=== PATIENT | female | born 1985 | race Asian ===

== ENCOUNTER 2018-06-02 20:07 | Emergency (ER) | payer MEDICAID ==
[~2018-06-02] VITALS: Ht 167.6 cm; Wt 57.8 kg
[2018-06-02 20:13] VITALS: BP 118/85
[2018-06-02] MEDS ORDERED: NEOM10SO7 OT (20:30)
[2018-06-02] MEDS ORDERED: ibuprofen tablet 400 MG TABLET PO ONE (20:35)
== END 2018-06-02 20:40 | disposition home or self-care (01) ==
LOC: ER 20:08
DX: H61.892 Other specified disorders of left external ear (principal); Z79.899 Other long term (current) drug therapy
CPT/HCPCS: 99283

== ENCOUNTER 2022-03-08 19:22 | Emergency (ER) | payer MEDICAID ==
[~2022-03-08] VITALS: Ht 165.1 cm; Wt 63.6 kg
[~2022-03-08 19:22] MED LIST: NEOM10SO7 OT
[2022-03-08 19:27] VITALS: BP 133/74
[2022-03-08 20:03] LABS: BASOPHILS # (AUTO) 0.1 X10'3 (0-0.2); EOSINOPHILS # (AUTO) 0.1 X10'3 (0-0.9); MEAN CORPUSCULAR VOLUME 72.4 FL (78-98); MONOCYTES # (AUTO) 0.5 X10'3 (0-0.9)
[2022-03-08 20:07] LABS: URINE HCG NEGATIVE (NEG)
[2022-03-08 20:07] LABS: BASOPHILS % (AUTO) 0.7 % (0-1); EOSINOPHILS % (AUTO) 1.4 % (0-6); HEMATOCRIT 37.5 % (35.0-45.0); LYMPHOCYTES # (AUTO) 2.6 X10'3 (1.1-4.8); LYMPHOCYTES % (AUTO) 33.9 % (21-51); MEAN CORPUSCULAR HEMOGLOBIN 23.1 PG (27.0-31.0); MEAN PLATELET VOLUME 7.2 FL (7.4-10.4); MONOCYTES % (AUTO) 6.9 % (2-12); NEUTROPHILS # (AUTO) 4.3 X10'3 (1.8-7.7); NEUTROPHILS % (AUTO) 57.1 % (42-75); PLATELET COUNT 325 X10'3 (140-440); RED BLOOD COUNT 5.18 X10'6 (4.20-5.60); RED CELL DISTRIBUTION WIDTH 14.7 % (11.5-14.5); WHITE BLOOD COUNT 7.6 X10'3 (4.5-11.0)
[2022-03-08 20:10] LABS: CLARITY,URINE CLEAR (Clear); COLOR,URINE YELLOW (Yellow); GLUCOSE, URINE NEGATIVE (Neg); KETONES,URINE NEGATIVE (Neg); LEUKOCYTE ESTERASE ,URINE NEGATIVE (Neg); NITRITES, URINE NEGATIVE (Neg); OCCULT BLOOD,URINE NEGATIVE (Neg); PROTEIN,URINE NEGATIVE (Neg)
[2022-03-08 20:12] LABS: UA COLLECTION TYPE CLN CATCH MIDSTREAM
[2022-03-08 20:16] LABS: ALANINE AMINOTRANSFERASE 16 U/L (12-78); ALBUMIN/GLOBULIN RATIO 1.1 (1.1-1.5); ALKALINE PHOSPHATASE 68 IU/L (46-116); ANION GAP 7 (8-16); ASPARTATE AMINO TRANSFERASE 15 U/L (10-37); BILIRUBIN,TOTAL 0.2 MG/DL (0.1-1.0); BLOOD UREA NITROGEN 19 MG/DL (7-18); BUN/CREATININE RATIO 26.4 (6.6-38.0); CALCIUM 8.3 MG/DL (8.5-10.1); CHLORIDE 105 MMOL/L (99-107); CREATININE 0.72 MG/DL (0.40-0.90); GLUCOSE 130 MG/DL (70-104); LIPASE 160 U/L (73-393); POTASSIUM 3.3 MMOL/L (3.5-5.1); SODIUM 140 MMOL/L (135-145); TOTAL CARBON DIOXIDE 27.9 MMOL/L (24-32); TOTAL PROTEIN 7.7 G/DL (6.4-8.2); eGFR > 90 ML/MIN
== END 2022-03-09 00:50 | disposition left against medical advice (07) ==
LOC: ER 19:23
DX: R10.9 Unspecified abdominal pain (principal); Z53.21 Procedure and treatment not carried out due to patient leaving prior to being seen by health care provider
CPT/HCPCS: 80053; 81003; 81025; 83690; 85025

== ENCOUNTER 2022-03-09 08:24 | Emergency (ER) | payer MEDICAID | END 2022-03-09 10:16 | disposition left against medical advice (07) | LOC: ER 08:25 | DX: R10.9 Unspecified abdominal pain (principal); Z53.21 Procedure and treatment not carried out due to patient leaving prior to being seen by health care provider ==

== ENCOUNTER 2022-10-05 12:54 | Emergency (ER) | payer MEDICAID | END 2022-10-05 14:51 | disposition left against medical advice (07) | LOC: ER 12:55 | DX: Z32.00 Encounter for pregnancy test, result unknown (principal); Z53.21 Procedure and treatment not carried out due to patient leaving prior to being seen by health care provider ==

== ENCOUNTER 2023-01-18 12:19 | Emergency (ER) | payer MEDICAID ==
[~2023-01-18] VITALS: Ht 167.6 cm; Wt 66.4 kg
[2023-01-18 12:33] VITALS: BP 150/90
[2023-01-18] MEDS ORDERED: dexamethasone sod phosphate 10mg/ml inj PO STA (14:49)
[2023-01-18] MEDS ORDERED: AMOX-117 PO (15:21)
== END 2023-01-18 15:33 | disposition home or self-care (01) ==
LOC: ER 12:21
DX: J02.0 Streptococcal pharyngitis (principal)
CPT/HCPCS: 87880; 99283; J1100

== ENCOUNTER 2023-02-23 08:29 | Emergency (ER) | payer MEDICAID ==
[~2023-02-23] VITALS: Ht 167.6 cm; Wt 61.4 kg
[2023-02-23 08:36] VITALS: BP 144/86; PULSE 98; RESP 16; O2SAT 98
[2023-02-23] MEDS ORDERED: LIDOcaine/epinephrine/tetracaine TOPICAL sol 3 ML syringe TOP ONE (09:15)
[2023-02-23] MEDS ORDERED: LIDOcaine 1% W/epiNEPHrine 1:200,000 10ml vial IJ ONE (09:15)
[2023-02-23] MEDS ORDERED: LIDOcaine 1% w/EPI 1:100,000 inj. MDV 50 ML VIAL SQ ONE (09:50)
[2023-02-23] MEDS ORDERED: AMOX-580 PO (10:07)
== END 2023-02-23 11:06 | disposition home or self-care (01) ==
LOC: ER 08:30
DX: K61.0 Anal abscess (principal); Z79.2 Long term (current) use of antibiotics; Z79.899 Other long term (current) drug therapy
CPT/HCPCS: 46050; 87070; 87186; 99284; A6266; J3490; 87077; A6258; A6407; A6449

== ENCOUNTER 2023-02-24 08:41 | Emergency (ER) | payer MEDICAID ==
[~2023-02-24] VITALS: Ht 167.6 cm; Wt 66.4 kg
[~2023-02-24 08:41] MED LIST changes: +AMOX-580 PO
[2023-02-24 08:46] VITALS: BP 127/72; PULSE 94; RESP 18; TEMP 98; O2SAT 99
== END 2023-02-24 10:56 | disposition home or self-care (01) ==
LOC: ER 08:42
DX: K61.0 Anal abscess (principal); Z79.899 Other long term (current) drug therapy
CPT/HCPCS: 99281; A6449